=== PATIENT | female | born 1965 | race Caucasian/White ===

== ENCOUNTER 2018-01-11 10:53 | Emergency (ER) | payer SELFPAY ==
[2018-01-11] MEDS ORDERED: NITROGLYCERIN 0.4 MG/TAB SL ONE (13:23)
[2018-01-11] MEDS ORDERED: cloNIDine HCl 0.1 MG TAB ONE (14:28)
[2018-01-11] MEDS ORDERED: ENALAPRILAT 1.25 MG/ML VIAL IV ONE (15:34)
--- NOTE | 2018-01-11 16:17 | EDPHYS ---
Physician Documentation [facility] Name: Jigna Couch Age: 52 yrs Sex: Female : 1965 Arrival Date: 01/11/2018 Time: 10:56 Bed 6 Private MD: None, None ED Physician Az Ren HPI: 01/11 14:17 This 52 yrs old Female presents to ER via Ambulatory with complaints of High jr8 Blood Pressure. 14:17 The patient has elevated blood pressure and discovered this at a physician's office, [facility] and sent to the emergency department for evaluation. Associated signs and symptoms: The patient has no apparent associated signs or symptoms. Severity of symptoms: At its worst the blood pressure was moderate, in the emergency department the blood pressure is unchanged. It is unknown whether or not the patient has had similar symptoms in the past. The patient has been recently seen by a physician:. Patient has been having shortness of breath for the past couple of days. Diagnosed with bronchitis but at that time was evaluated at the ED for elevated BP as well. Had work up completed and sent home to f/u with PCP. Today at PCP blood pressure was markedly elevated and was sent to ED for further evaluation. Denies CP or shortness of breath today . 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 - Social history:: Smoking status: Patient uses tobacco products, smokes one-half pack cigarettes per day, smokes one pack cigarettes per day. ROS: 14:17 Eyes: Negative for injury, pain, redness, and discharge, ENT: Negative for injury, jr8 pain, and discharge, Neck: Negative for injury, pain, and swelling, Cardiovascular: Negative for chest pain, palpitations, and edema, Respiratory: Negative for shortness of breath, cough, wheezing, and pleuritic chest pain, Abdomen/GI: Negative for abdominal pain, nausea, vomiting, diarrhea, and constipation, Back: Negative for injury and pain, MS/Extremity: Negative for injury and deformity, Skin: Negative for injury, rash, and discoloration, Neuro: Negative for headache, weakness, numbness, tingling, and seizure. Exam: 14:17 Head/Face: Normocephalic, atraumatic. Eyes: Pupils equal round and reactive to light, jr8 extra-ocular motions intact. Lids and lashes normal. Conjunctiva and sclera are non-icteric and not injected. Cornea within normal limits. Periorbital areas with no swelling, redness, or edema. ENT: Nares patent. No nasal discharge, no septal abnormalities noted. Tympanic membranes are normal and external auditory canals are clear. Oropharynx with no redness, swelling, or masses, exudates, or evidence of obstruction, uvula midline. Mucous membranes moist. Neck: Trachea midline, no thyromegaly or masses palpated, and no cervical lymphadenopathy. Supple, full range of motion without nuchal rigidity, or vertebral point tenderness. No Meningismus. Cardiovascular: Regular rate and rhythm with a normal S1 and S2. No gallops, murmurs, or rubs. Normal PMI, no JVD. No pulse deficits. Respiratory: Lungs have equal breath sounds bilaterally, clear to auscultation and percussion. No rales, rhonchi or wheezes noted. No increased work of breathing, no retractions or nasal flaring. Abdomen/GI: Soft, non-tender, with normal bowel sounds. No distension or tympany. No guarding or rebound. No evidence of tenderness throughout. Back: No spinal tenderness. No costovertebral tenderness. Full range of motion. Skin: Warm, dry with normal turgor. Normal color with no rashes, no lesions, and no evidence of cellulitis. MS/ Extremity: Pulses equal, no cyanosis. Neurovascular intact. Full, normal range of motion. Neuro: Awake and alert, GCS 15, oriented to person, place, time, and situation. Cranial nerves II-XII grossly intact. Motor strength 5/5 in all extremities. Sensory grossly intact. Cerebellar exam normal. Normal gait. Vital Signs: 11:03 BP 198 / 120; Pulse 118; Resp 22; Temp 98.0; Pulse Ox 96% on R/A; Weight 97.07 kg; aj Height 5 ft. 8 in. (172.72 cm); Pain 0/10; 12:41 BP 193 / 104 Sitting; Pulse 102; Resp 18; Pulse Ox 98% on R/A; aj 14:14 BP 173 / 96; Pulse 98; Resp 22 S; Pulse Ox 92% on R/A; ae1 15:15 BP 180 / 99; Pulse 94; Resp 19; Pulse Ox 98% on R/A; ae1 15:45 BP 181 / 85; Pulse 85; Resp 18; Pulse Ox 95% on R/A; ae1 16:03 BP 175 / 97; Pulse 85; Resp 18; Pulse Ox 95% on R/A; ae1 11:03 Body Mass Index 32.54 (97.07 kg, 172.72 cm) aj MDM: 13:00 Patient medically screened. ri 14:17 Data reviewed: vital signs, nurses notes, diagnostic data from outside facility, jr8 cardiac enzymes, troponin i, CBC, white blood cell count, hemoglobin, hematocrit, platelets, EKG, electrolytes, sodium, potassium, chloride, serum bicarbonate, BUN, creatinine, serum glucose, radiologic studies, plain films, urinalysis. Data interpreted: Pulse oximetry: on room air is 94 %. Interpretation: normal. Counseling: I had a detailed discussion with the patient and/or guardian regarding: the historical points, exam findings, and any diagnostic results supporting the discharge/admit diagnosis, the presence of at least one elevated blood pressure reading (>120/80) during this emergency department visit, the need for outpatient follow up, a family practitioner, to return to the emergency department if symptoms worsen or persist or if there are any questions or concerns that arise at home. 15:52 ED course: Patient had full workup at [place] yesterday. No acute findings on imaging, jr8 ekg, or labs. Patient stated that ever since she put on weight blood pressure has gone up substantially. Will put her on meds until she can see PCP again. Continues to be asymptomatic . 01/11 13:17 Order name: EKG; Complete Time: 13:18 ri Administered Medications: 13:25 CANCELLED (wrong patient): Nitroglycerin 0.4 mg Sublingual once kr2 14:28 Drug: cloNIDine 0.1 mg Route: PO; ae1 15:40 Follow up: Response: Blood pressure is unchanged ae1 15:36 Drug: Enalaprilat 1.25 mg Route: IV; Rate: calculated rate; Site: right forearm; ae1 17:01 Follow up: Response: Blood pressure is lowered; IV Status: Completed infusion ae1 Disposition: 01/11/18 16:16 Discharged to Home. Impression: Essential (primary) hypertension. - Condition is Stable. - Discharge Instructions: Hypertension. - Medication Reconciliation Form, Thank You Letter, Antibiotic Education, Prescription Opioid Use form. - Follow up: Private Physician; When: 1 - 2 days; Reason: Recheck today's complaints, Continuance of care, Re-evaluation by your physician. - Problem is new. - Symptoms have improved. - Notes: Written prescription for Diovan HCT Addendum: 01/13/2018 06:36 Co-signature as Attending Physician, Az Ren MD I agree with the assessment and w a plan of care. Signatures: Dispatcher [employer] EDMaria Del Carmen Dumont RN RN aj Roszak, Josh, PA PA jr8 Casper Mcbride RN RN ae1 Az Ren MD MD wa Reaves, Karey RN kr2 Corrections: (The following items were deleted from the chart) 01/11 13:25 13:17 Nitroglycerin 0.4 mg Sublingual once ordered. [facility] 13:26 13:17 Cardiac monitoring ordered. [facility] 13: 13:17 EKG - Nurse/Tech ordered. [facility] 13:27 13:17 IV Saline Lock ordered. [facility] 13: 13:17 Labs collected and sent ordered. [facility] 13: 13:17 Oxygen Per Protocol ordered. [facility] 13:28 13:17 O2 Sat Monitoring ordered. [facility] 13:28 13:17 Urine Dipstick-Ancillary ordered. [facility] 13:29 13:18 BASIC METABOLIC PANEL+C.LAB.BRZ ordered. EDAL EDMS 13:29 13:18 BNP+C.LAB.BRZ ordered. EDMS EDMS 13:29 13:18 CBC+H.LAB.BRZ ordered. EDMS EDMS 13:29 13:18 HEPATIC FUNCTION+C.LAB.BRZ ordered. EDMS EDMS 13:29 13:18 MAGNESIUM+C.LAB.BRZ ordered. EDMS EDMS 13:29 13:18 PROTIME (+INR)+COAG.LAB.BRZ ordered. EDMS EDMS 13:29 13:18 TROPONIN (EMERG DEPT USE ONLY)+C.LAB.BRZ ordered. EDAL EDMS 14:06 13:18 Chest Single View+RAD.RAD.BRZ ordered. [facility] EDMS 17:00 16:16 01/11/2018 16:16 Discharged to Home. Impression: Essential (primary) ae1 hypertension. Condition is Stable. Discharge Instructions: Hypertension. Forms are Medication Reconciliation Form, Thank You Letter, Antibiotic Education, Prescription Opioid Use. Follow up: Private Physician; When: 1 - 2 days; Reason: Recheck today's complaints, Continuance of care, Re-evaluation by your physician. Problem is new. Symptoms have improved. jr8
--- NOTE | 2018-01-11 16:17 | ER ---
Nurse's Notes [facility] Name: Jigna Couch Age: 52 yrs Sex: Female : 1965 Arrival Date: 01/11/2018 Time: 10:56 Bed 6 Private MD: None, None Diagnosis: Essential (primary) hypertension Presentation: 01/11 11:01 Presenting complaint: Patient states: Patient sent by [facility] for high blood pressure. Patient referred to [facility] for HTN at [place] 2 days ago. Denies headache or dizziness. Patient reports increased stress recently. Transition of care: patient was not received from another setting of care. Onset of symptoms was January 11, 2018. Initial Sepsis Screen: Does the patient meet any 2 criteria? No. Patient's initial sepsis screen is negative. Does the patient have a suspected source of infection? No. Patient's initial sepsis screen is negative. Care prior to arrival: None. 11:01 Method Of Arrival: Ambulatory 11:01 Acuity: VON 3 Triage Assessment: 11:03 General: Appears in no apparent distress. comfortable, Behavior is calm, cooperative, aj appropriate for age. Pain: Denies pain. Neuro: Level of Consciousness is awake, alert, obeys commands, Oriented to person, place, time, situation, Appropriate for age. Respiratory: Airway is patent Respiratory effort is even, unlabored, Respiratory pattern is regular, symmetrical. Derm: Skin is intact, is healthy with good turgor, Skin is pink, warm \T\ dry. normal. GYN: 11:03 LMP N/A - Post-menopause aj Historical: - Allergies: 11:03 No Known Allergies; aj - Home Meds: 11:03 Prednisone Oral [Active]; Albuterol Inhl [Active]; aj - PMHx: 11:03 None; aj - PSHx: 11:03 ; Knee surgery; Appendectomy; Tonsillectomy; aj - Immunization history:: Adult Immunizations up to date. - Social history:: Smoking status: Patient uses tobacco products, smokes one-half pack cigarettes per day, smokes one pack cigarettes per day. Screenin:16 Abuse screen: Denies threats or abuse. Nutritional screening: No deficits noted. ae1 Tuberculosis screening: No symptoms or risk factors identified. Fall Risk None identified. Assessment: 14:15 General: Appears in no apparent distress. comfortable, obese, Behavior is cooperative, ae1 agitated, anxious. Pain: Denies pain. Neuro: Level of Consciousness is awake, alert, obeys commands, Oriented to person, place, time, situation. Cardiovascular: Heart tones S1 S2 present Patient's skin is warm and dry. Rhythm is regular. Respiratory: Airway is patent Respiratory effort is even, unlabored, shallow, Respiratory pattern is regular, Breath sounds are clear bilaterally. GI: No signs and/or symptoms were reported involving the gastrointestinal system. Abdomen is round obese, Bowel sounds present X 4 quads. : No signs and/or symptoms were reported regarding the genitourinary system. EENT: No signs and/or symptoms were reported regarding the EENT system. Derm: Skin is flushed. Musculoskeletal: No signs and/or symptoms reported regarding the musculoskeletal system. 15:16 Reassessment: Patient appears in no apparent distress at this time. Patient and/or ae1 family updated on plan of care and expected duration. Pain level reassessed. Patient denies pain at this time. 16:05 Reassessment: Patient appears in no apparent distress at this time. Patient and/or ae1 family updated on plan of care and expected duration. Pain level reassessed. Patient denies pain at this time. Vital Signs: 11:03 BP 198 / 120; Pulse 118; Resp 22; Temp 98.0; Pulse Ox 96% on R/A; Weight 97.07 kg; aj Height 5 ft. 8 in. (172.72 cm); Pain 0/10; 12:41 BP 193 / 104 Sitting; Pulse 102; Resp 18; Pulse Ox 98% on R/A; aj 14:14 BP 173 / 96; Pulse 98; Resp 22 S; Pulse Ox 92% on R/A; ae1 15:15 BP 180 / 99; Pulse 94; Resp 19; Pulse Ox 98% on R/A; ae1 15:45 BP 181 / 85; Pulse 85; Resp 18; Pulse Ox 95% on R/A; ae1 16:03 BP 175 / 97; Pulse 85; Resp 18; Pulse Ox 95% on R/A; ae1 11:03 Body Mass Index 32.54 (97.07 kg, 172.72 cm) ED Course: 10:56 Patient arrived in ED. mr 10:57 None, None is Private Physician. mr 11:02 Triage completed. aj 11:03 Arm band placed on right wrist. Patient placed in waiting room, Patient notified of wait time. 12:54 Lorie Mckenzie, RN is Primary Nurse. kr2 13:00 Az Ren MD is Attending Physician. wa 13:49 EKG done, by manufacturing plant technician. reviewed by Az Ren MD. at1 13:51 Casper Mcbride RN is Primary Nurse. ae1 13:51 Tremayne Palumbo PA is PHCP. jr8 13:51 Az Ren MD is Attending Physician. jr8 13:51 Inserted saline lock: 20 gauge in right forearm, using aseptic technique. wrist, using ae1 aseptic technique. Blood collected. 14:16 Placed in gown. Bed in low position. Call light in reach. Side rails up X 1. Adult w/ ae1 patient. Pulse ox on. NIBP on. 17:00 No provider procedures requiring assistance completed. IV discontinued, intact, ae1 bleeding controlled, No redness/swelling at site. Pressure dressing applied. Administered Medications: 13:25 CANCELLED (wrong patient): Nitroglycerin 0.4 mg Sublingual once kr2 14:28 Drug: cloNIDine 0.1 mg Route: PO; ae1 15:40 Follow up: Response: Blood pressure is unchanged ae1 15:36 Drug: Enalaprilat 1.25 mg Route: IV; Rate: calculated rate; Site: right forearm; ae1 17:01 Follow up: Response: Blood pressure is lowered; IV Status: Completed infusion ae1 Outcome: 16:16 Discharge ordered by . jr8 17:00 Discharged to home ambulatory, with significant other. ae1 17:00 Condition: stable 17:00 Discharge instructions given to patient, Instructed on discharge instructions, follow up and referral plans. medication usage, Demonstrated understanding of instructions, Prescriptions given X 1. 17:00 Patient left the ED. ae1 Signatures: Maria Del Carmen Caro RN RN aj Rivera, Maria mr Tremayne Palumbo PA PA jr8 Maria Del Carmen luther, environmental services supervisor EKG Tat1 Casper Mcbride, ONELIA RN ae1 Az Ren MD MD wa Reaves, Karey, RN RN kr2 Corrections: (The following items were deleted from the chart) 15:24 15:15 BP 180 / 99; Pulse 94bpm; Resp 19bpm; Pulse Ox 94% RA; ae1 ae1
--- NOTE | 2018-01-11 17:59 | EKG ---
Test Date: 2018-01-11 Test Time: 13:36:45 Epic Prelude Analyst: GILA MEASUREMENT RESULTS: Intervals: Rate: 92 ID: [id number] QRSD: 86 QT: 358 QTc: 442 [place]: P: 55 ID: [id number] QRS: 53 T: 48 INTERPRETIVE STATEMENTS: Normal sinus rhythm Possible Left atrial enlargement Borderline ECG No previous ECG available for comparison Electronically Signed On 01-11-18 17:58:02 CDT by Mateo Garza
== END 2018-01-11 17:00 | disposition home or self-care (01) ==
LOC: ER 10:53
DX: I10 Essential (primary) hypertension (principal); F17.210 Nicotine dependence, cigarettes, uncomplicated
CPT/HCPCS: 93005; 96365; 99284

== ENCOUNTER 2018-10-23 20:31 | Observation (INO) | payer BC, SELFPAY ==
[2018-10-23] MEDS ORDERED: ASPIRIN 81 MG CHEWABLE TABLET ONE (22:57)
[2018-10-23] MEDS ORDERED: NITROGLYCERIN 0.4 MG/TAB SL ONE (22:58)
[2018-10-23 23:27] LABS: Absolute Lymphocytes (CBC) 3.4 K/uL (0.7-4.9); Absolute Monocytes 0.6 K/uL (0.1-1.3); Absolute Neutrophil 6.4 K/uL (1.8-8.0); Basophils % 0.7 % (0-1.3); Eosinophils % 1.4 % (0-4.4); Lymphocytes % 32.4 % (15.3-44.8); MPV 8.1 fL (7.6-11.3); Monocytes % 5.5 % (3.3-12.3); Protime INR 0.97
[2018-10-23 23:49] LABS: Urine Blood NEGATIVE (NEG); Urine Glucose NEGATIVE (NEG)
[2018-10-23 23:50] LABS: Urine Protein NEGATIVE (NEG)
[2018-10-23 23:56] LABS: ALT/SGPT 27 U/L (12-78); AST/SGOT 25 U/L (15-37); Albumin 3.5 g/dL (3.4-5.0); Alkaline Phosphatase 140 U/L (45-117); BUN Blood Urea Nitrogen 10 mg/dL (7-18); Bicarbonate 25 mmol/L (21-32); Bilirubin Direct < 0.1 mg/dL (0-0.2); Bilirubin Total 0.2 mg/dL (0.2-1.0); Glucose Level 93 mg/dL (74-106); Magnesium 2.1 mg/dL (1.8-2.4); NT PRO-BNP 19 pg/mL (<125); Potassium 3.4 mmol/L (3.5-5.1); Protein, Total 7.7 g/dL (6.4-8.2); Sodium Level 137 mmol/L (136-145); Troponin (Emerg Dept Use Only) < 0.02 ng/mL (0.0-0.045)
--- NOTE | 2018-10-24 00:26 | ER ---
Nurse's Notes [facility] Name: Jigna Couch Age: 53 yrs Sex: Female : 1965 Arrival Date: 10/23/2018 Time: 20:32 Bed 15 Private MD: None, None Diagnosis: Chest pain, unspecified Presentation: 10/23 20:44 Presenting complaint: Patient states: left rib pain since 729. pt denies N/V, denies ak1 SOB. Transition of care: patient was not received from another setting of care. Onset of symptoms was October 23, 2018. Risk Assessment: Do you want to hurt yourself or someone else? Patient reports no desire to harm self or others. Initial Sepsis Screen: Does the patient meet any 2 criteria? No. Patient's initial sepsis screen is negative. Does the patient have a suspected source of infection? No. Patient's initial sepsis screen is negative. Care prior to arrival: None. 20:44 Method Of Arrival: Ambulatory ak1 20:44 Acuity: VON 3 ak1 Triage Assessment: 20:46 General: Appears in no apparent distress. Behavior is calm, cooperative. 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 - Social history:: Smoking status: Patient uses tobacco products, smokes one pack cigarettes per day. - Ebola Screening: : No symptoms or risks identified at this time. Screenin:51 Abuse screen: Denies threats or abuse. Denies injuries from another. Nutritional cc3 screening: No deficits noted. Tuberculosis screening: No symptoms or risk factors identified. Fall Risk Ambulatory Aid- None/Bed Rest/Nurse Assist (0 pts). Gait- Normal/Bed Rest/Wheelchair (0 pts) Mental Status- Oriented to own ability (0 pts). Assessment: 21:51 Pain: Pain does not radiate. Pain began suddenly. Cardiovascular: Reports chest pain, cc3 Patient's skin is warm and dry. 22:18 Reassessment: Patient appears in no apparent distress at this time. Patient and/or cc3 family updated on plan of care and expected duration. Pain level reassessed. Patient is alert, oriented x 3, equal unlabored respirations, skin warm/dry/pink. 23:25 Reassessment: Patient appears in no apparent distress at this time. Patient and/or cc3 family updated on plan of care and expected duration. Pain level reassessed. Patient is alert, oriented x 3, equal unlabored respirations, skin warm/dry/pink. 10/24 00:25 Reassessment: Patient appears in no apparent distress at this time. Patient and/or cc3 family updated on plan of care and expected duration. Pain level reassessed. Patient is alert, oriented x 3, equal unlabored respirations, skin warm/dry/pink. Patient for admission, awaiting admission orders. 01:30 Reassessment: Patient appears in no apparent distress at this time. Patient and/or cc3 family updated on plan of care and expected duration. Pain level reassessed. Patient is alert, oriented x 3, equal unlabored respirations, skin warm/dry/pink. Room available at 219, report called and handed over to ONELIA Nation for continuity of care and management. 01:50 Reassessment: Patient left ER for admission vitally stable by wheelchair escorted by ED cc3 arik Thornton with the patient's . Vital Signs: 10/23 20:46 BP 141 / 81; Pulse 84; Resp 20; Temp 98.1; Pulse Ox 95% on R/A; Weight 102.06 kg (R); ak1 Height 5 ft. 8 in. (172.72 cm) (R); Pain 6/10; 21:54 BP 131 / 81; Pulse 77; Resp 20 S; Pulse Ox 95% on R/A; cc3 22:45 BP 123 / 71; Pulse 79; Resp 20 S; Pulse Ox 95% on R/A; cc3 23:57 BP 133 / 74; Pulse 75; Resp 19 S; Pulse Ox 95% on R/A; cc3 10/24 00:45 BP 135 / 77; Pulse 78; Resp 19 S; Pulse Ox 94% on 2 lpm NC; cc3 01:20 BP 157 / 90; Pulse 70; Resp 19; Pulse Ox 94% on 2 lpm NC; cc3 10/23 20:46 Body Mass Index 34.21 (102.06 kg, 172.72 cm) ak1 ED Course: 10/23 20:32 Patient arrived in ED. dl4 20:32 None, None is Private Physician. dl4 20:45 Triage completed. ak1 20:46 Arm band placed on Patient placed in waiting room, Patient notified of wait time. ak1 21:34 Chest Pa And Lat (2 Views) XRAY In Process Unspecified. EDMS 21:51 Lianne Sher is Primary Nurse. cc3 21:51 Patient has correct armband on for positive identification. Bed in low position. Call cc3 light in reach. Side rails up X 1. phototypesetting equipment monitor on. Pulse ox on. NIBP on. 21:51 Patient maintains SpO2 saturation greater than 95% on room air. cc3 22:22 Mauro Leal PA is PHCP. cp 22:23 Mauro Castillo MD is Attending Physician. cp 23:00 Inserted saline lock: 22 gauge in right forearm, using aseptic technique. Blood cc3 collected. 10/24 00:24 Maricel Worrell MD is Hospitalizing Provider. cp 01:30 No provider procedures requiring assistance completed. Patient admitted, IV remains in cc3 place. Administered Medications: 10/23 22:45 Drug: Aspirin Chewable Tablet 324 mg Route: PO; cc3 23:00 Follow up: Response: No adverse reaction cc3 22:46 Drug: Nitroglycerin 0.4 mg Route: Sublingual; cc3 23:00 Follow up: Response: No adverse reaction cc3 Outcome: 10/24 00:25 Decision to Hospitalize by Provider. cp 01:30 Admitted to Med/surg accompanied by tech, family with patient, via wheelchair, room cc3 219, with chart, Report called to ONELIA Nation 01:30 Condition: stable 01:30 Instructed on the need for admit, Demonstrated understanding of instructions. 01:55 Patient left the ED. cc3 Signatures: Dispatcher [employer] EDMS Michelle Woodard, RN RN ak1 Mauro Leal PA PA cp Lianne Sher cc3 Vernon Cruz dl4
--- NOTE | 2018-10-24 00:27 | EDPHYS ---
Physician Documentation [facility] Name: Jigna Couch Age: 53 yrs Sex: Female : 1965 Arrival Date: 10/23/2018 Time: 20:32 Bed 15 Private MD: None, None ED Physician Mauro Castillo HPI: 10/23 22:35 This 53 yrs old Female presents to ER via Ambulatory with complaints of Chest cp Pain, High Blood Pressure. 22:35 The patient or guardian reports chest pain that is located primarily in the anterior cp chest wall, left. 22:35 Onset: this morning. The pain radiates to the left shoulder, left neck. Associated cp signs and symptoms: Pertinent negatives: abdominal pain, cough, diaphoresis, dizziness, headache, lower extremity pain, lower extremity swelling, lightheadedness, recent travel, shortness of breath, syncope. The chest pain is described as sharp. Duration: The patient or guardian reports a single episode, that is still ongoing. 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 - Social history:: Smoking status: Patient uses tobacco products, smokes one pack cigarettes per day. - Ebola Screening: : No symptoms or risks identified at this time. ROS: 22:40 Constitutional: Negative for body aches, chills, fever, poor PO intake. cp 22:40 Eyes: Negative for injury, pain, redness, and discharge. cp 22:40 ENT: Negative for drainage from ear(s), ear pain, sore throat, difficulty swallowing, difficulty handling secretions. 22:40 Cardiovascular: Positive for chest pain, Negative for edema, palpitations. 22:40 Respiratory: Negative for cough, shortness of breath, wheezing. 22:40 Abdomen/GI: Negative for abdominal pain, nausea, vomiting, and diarrhea, black/tarry stool, rectal bleeding. 22:40 Back: Negative for pain at rest, pain with movement, radiated pain. 22:40 : Negative for urinary symptoms. 22:40 Skin: Negative for cellulitis, rash. 22:40 Neuro: Negative for altered mental status, dizziness, headache, syncope, near syncope, weakness. 22:40 All other systems are negative. Exam: 22:15 ECG was reviewed by the Attending Physician. cp 22:45 Constitutional: The patient appears in no acute distress, alert, awake, cp non-diaphoretic, non-toxic, well developed, well nourished. 22:45 Head/Face: Normocephalic, atraumatic. Eyes: Pupils equal round and reactive to light, cp extra-ocular motions intact. Lids and lashes normal. Conjunctiva and sclera are non-icteric and not injected. Cornea within normal limits. Periorbital areas with no swelling, redness, or edema. ENT: Nares patent. No nasal discharge, no septal abnormalities noted. Tympanic membranes are normal and external auditory canals are clear. Oropharynx with no redness, swelling, or masses, exudates, or evidence of obstruction, uvula midline. Mucous membranes moist. Neck: Trachea midline, no thyromegaly or masses palpated, and no cervical lymphadenopathy. Supple, full range of motion without nuchal rigidity, or vertebral point tenderness. No Meningismus. Chest/axilla: Normal chest wall appearance and motion. Nontender with no deformity. No lesions are appreciated. 22:45 Cardiovascular: Rate: normal, Rhythm: regular, Heart sounds: murmur, not appreciated, rub, not appreciated, gallop, not appreciated, Edema: is not appreciated, JVD: is not appreciated. 22:45 Respiratory: the patient does not display signs of respiratory distress, Respirations: normal, no use of accessory muscles, no retractions, no splinting, no tachypnea, labored breathing, is not present, Breath sounds: bronchial sounds, are not appreciated, decreased breath sounds, are not appreciated, stridor, is not appreciated, wheezing: is not appreciated. 22:45 Abdomen/GI: Inspection: abdomen appears normal, Bowel sounds: active, all quadrants, Palpation: abdomen is soft and non-tender, in all quadrants, rebound tenderness, is not appreciated, voluntary guarding, is not appreciated, involuntary guarding, is not appreciated. 22:45 Back: pain, is absent, ROM is normal. 22:45 Musculoskeletal/extremity: Exam is negative for calf tenderness, decreased range of motion, edema, injury. 22:45 Skin: cellulitis, is not appreciated, no rash present. 22:45 Neuro: Orientation: to person, place \T\ time. Mentation: is normal, Cerebellar function: is grossly normal, Motor: is normal, Sensation: is normal. Vital Signs: 20:46 BP 141 / 81; Pulse 84; Resp 20; Temp 98.1; Pulse Ox 95% on R/A; Weight 102.06 kg (R); ak1 Height 5 ft. 8 in. (172.72 cm) (R); Pain 6/10; 21:54 BP 131 / 81; Pulse 77; Resp 20 S; Pulse Ox 95% on R/A; cc3 22:45 BP 123 / 71; Pulse 79; Resp 20 S; Pulse Ox 95% on R/A; cc3 23:57 BP 133 / 74; Pulse 75; Resp 19 S; Pulse Ox 95% on R/A; cc3 10/24 00:45 BP 135 / 77; Pulse 78; Resp 19 S; Pulse Ox 94% on 2 lpm NC; cc3 01:20 BP 157 / 90; Pulse 70; Resp 19; Pulse Ox 94% on 2 lpm NC; cc3 10/23 20:46 Body Mass Index 34.21 (102.06 kg, 172.72 cm) ak1 MDM: 10/23 22:25 Patient medically screened. cp 23:00 Differential diagnosis: abnormal EKG, acute myocardial infarction, acute pericarditis, cp costochondritis, esophagitis, gastritis, pancreatitis, pleurisy, pneumonia, pneumothorax, pulmonary embolus, stable angina, unstable angina. 10/24 00:00 The patient was given aspirin in the Emergency Department. cp 00:25 Data reviewed: vital signs, nurses notes, lab test result(s), EKG, radiologic studies, cp plain films. 00:25 Test interpretation: by ED physician or midlevel provider: ECG, plain radiologic cp studies. Response to treatment: the patient's symptoms have markedly improved after treatment, and as a result, I will admit patient. 10/23 22:35 Order name: Basic Metabolic Panel; Complete Time: 23:56 cp 10/23 23:57 Interpretation: Normal except: K 3.4. cp 10/23 22:35 Order name: CBC with Diff; Complete Time: 23:56 cp 10/23 22:35 Order name: LFT's; Complete Time: 23:56 cp 10/23 23:57 Interpretation: Normal except: ALK 140; GLOB 4.2; A/G 0.8. cp 02 22:35 Order name: Magnesium; Complete Time: 23:56 cp 10/23 22:35 Order name: NT PRO-BNP; Complete Time: 23:56 cp 10/23 22:35 Order name: PT-INR; Complete Time: 23:56 cp 10/23 20:59 Order name: Chest Pa And Lat (2 Views) XRAY ak1 02 22:35 Order name: Troponin (emerg Dept Use Only); Complete Time: 23:56 cp 10/23 23:37 Order name: Urine Dipstick--Ancillary (enter results); Complete Time: 23:56 fc 10/24 00:56 Order name: Echo with Doppler [facility] 10/24 00:56 Order name: Lipid Profile [facility] 10/24 00:56 Order name: Troponin I [facility] 10/23 22:35 Order name: EKG; Complete Time: 22:36 cp 10/23 22:35 Order name: Cardiac monitoring; Complete Time: 22:43 cp 10/23 22:35 Order name: EKG - Nurse/Tech; Complete Time: 22:43 cp 10/23 22:35 Order name: IV Saline Lock; Complete Time: 23:13 cp 10/23 22:35 Order name: Labs collected and sent; Complete Time: 23:13 cp 10/23 22:35 Order name: O2 Per Protocol; Complete Time: 22:43 cp 10/23 22:35 Order name: O2 Sat Monitoring; Complete Time: 22:43 cp 10/23 22:35 Order name: Urine Dipstick-Ancillary (obtain specimen); Complete Time: 23:37 cp 10/23 22:35 Order name: Urine Test (obtain specimen); Complete Time: 23:55 cp 10/24 00:56 Order name: CONS Physician Consult [facility] 10/24 00:56 Order name: Heart Healthy [facility] 10/24 00:56 Order name: EKG Electrocardiogram [facility] 10/24 00:56 Order name: EKG Electrocardiogram [facility] EC/11 22:15 Rate is 73 beats/min. Rhythm is regular. DE interval is normal. QRS interval is normal. cp QT interval is normal. Interpreted by me. Reviewed by me. Administered Medications: 22:45 Drug: Aspirin Chewable Tablet 324 mg Route: PO; cc3 23:00 Follow up: Response: No adverse reaction cc3 22:46 Drug: Nitroglycerin 0.4 mg Route: Sublingual; cc3 23:00 Follow up: Response: No adverse reaction cc3 Disposition: 10/24 07:01 Co-signature as Attending Physician, Mauro Castillo MD I agree with the assessment and vince plan of care. Disposition: 10/24/18 00:25 Hospitalization ordered by Maricel oWrrell for Observation. Preliminary diagnosis is Chest pain, unspecified. - Bed requested for Telemetry/MedSurg (observation). - Status is Observation. cc3 - Condition is Stable. - Problem is new. - Symptoms have improved. UTI on Admission? No Signatures: Dispatcher [employer] EDMS Lucie Velasquez RN RN kl Anderson, Corey, MD MD cha Krenek, Amber, RN RN ak1 Mauro Leal PA PA cp Cordel, Charlene cc3 Corrections: (The following items were deleted from the chart) 01:13 00:25 Hospitalization Ordered by Maricel Worrell MD for Observation. Preliminary kl diagnosis is Chest pain, unspecified. Bed requested for Telemetry/MedSurg (observation). Status is Observation. Condition is Stable. Problem is new. Symptoms have improved. UTI on Admission? No. cp 01:55 01:13 10/24/2018 00:25 Hospitalization Ordered by Maricel Worrell MD for Observation. cc3 Preliminary diagnosis is Chest pain, unspecified. Bed requested for Telemetry/MedSurg (observation). Status is Observation. Condition is Stable. Problem is new. Symptoms have improved. UTI on Admission? No. kl
[2018-10-24] MEDS ORDERED: ACETAMINOPHEN 500 MG TAB PO PRN (00:52)
[2018-10-24] MEDS ORDERED: MORPHINE 4 MG/ML SYR IV PRN (00:52)
[2018-10-24] MEDS ORDERED: ALPRAZOLAM 0.25 MG TABLET PO PRN (00:52)
[2018-10-24 06:30] LABS: BUN Blood Urea Nitrogen 10 mg/dL (7-18); Bicarbonate 30 mmol/L (21-32); Glucose Level 120 mg/dL (74-106); Potassium 3.7 mmol/L (3.5-5.1); Sodium Level 138 mmol/L (136-145)
[2018-10-24 06:36] LABS: HDL Cholesterol 42 mg/dL (40-60); LDL Cholesterol, Calculated 122 (<130); Troponin I < 0.02 ng/mL (0.0-0.045)
--- NOTE | 2018-10-24 07:18 | EKG ---
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
--- NOTE | 2018-10-24 08:20 | RAD REPORT ---
EXAM DESCRIPTION: RAD - Chest Pa And Lat (2 Views) - 10/23/2018 9:33 pm CLINICAL HISTORY: Cough;Chest pain Chest pain. COMPARISON: No comparisons FINDINGS: The lungs are clear. The heart is mildly enlarged in size. No displaced fractures.
[2018-10-24] MEDS ORDERED: METOPROLOL TAR 50 MG TAB PO SCH (09:00)
[2018-10-24] MEDS ORDERED: ENOXAPARIN 40 MG/0.4 ML SQ SCH (09:00)
[2018-10-24] MEDS ORDERED: ASPIRIN EC 81 MG TAB PO SCH (09:00)
--- NOTE | 2018-10-24 09:33 | P.HP ---
Certification for Inpatient Patient admitted to: Observation With expected LOS: <2 Midnights Patient will require the following post-hospital care: None Practitioner: I am a practitioner with admitting privileges, knowledge of patient current condition, hospital course, and medical plan of care. Services: Services provided to patient in accordance with Admission requirements found in Title 42 Section 412.3 of the Code of Federal Regulations Patient History Date of Service: 10/24/18 Reason for admission: chest pain rule out acute coronary syndrome History of Present Illness: Patient is a 53-year-old female with history of hypertension, diabetes, morbid obesity, tobacco use, and family history who presented to the hospital with chest pain. She has not been taking her blood pressure medication because they are too expensive. The chest pain was mainly in the sternal region and radiated to the left arm. She has some numbness and tingling in the left hand. She came into the hospital for further evaluation. She had her brother, father, mother with heart disease. She had a cousin who had sudden cardiac arrest. This was in his 50s. She is concerned because she has not been taking her blood pressure medication. Her troponins are negative. EKG with no acute abnormalities. Will rule her out, and will proceed with a stress test this morning. Allergies No Known Allergies Allergy (Verified 10/24/18 02:16) Home Medications: NK [No Home Meds] 10/24/18 - Past Medical/Surgical History Has patient received pneumonia vaccine in the past: No Diabetic: No -: hypertension -: csection -: knee replacement right -: appendectomy -: tomsillectomy - Family History Mother Medical History: Heart disease Father Medical History: Heart disease - Social History Smoking Status: Current every day smoker Alcohol use: No CD- Drugs: No Caffeine use: Yes Place of Residence: Home Review of Systems 10-point ROS is otherwise unremarkable Physical Examination - Vital Signs Temperature: 97.9 F Blood Pressure: 142/67 Pulse: 78 Respirations: 18 Pulse Ox (%): 93 - Physical Exam General: Alert, In no apparent distress, Oriented x3 HEENT: Atraumatic, PERRLA, Mucous membr. moist/pink, EOMI, Sclerae nonicteric Neck: Supple, 2+ carotid pulse no bruit, No LAD, Without JVD or thyroid abnormality Respiratory: Clear to auscultation bilaterally, Normal air movement Cardiovascular: Regular rate/rhythm, Normal S1 S2, No murmurs Gastrointestinal: Normal bowel sounds, Soft and benign, Non-distended, No tenderness Musculoskeletal: No clubbing, No swelling, No tenderness Integumentary: No rashes Neurological: Normal gait, Normal speech, Normal strength at 5/5 x4 extr, Normal tone, Sensation intact, Cranial nerves 3-12 intact, Normal affect Lymphatics: No axilla or inguinal lymphadenopathy - Studies Laboratory Data (last 24 hrs) 10/23/18 23:00: PT 11.5, INR 0.97 10/23/18 23:00: WBC 10.6, Hgb 14.5, Hct 43.0, Plt Count 329 10/23/18 23:00: Sodium 137, Potassium 3.4 L, BUN 10, Creatinine 0.63, Glucose 93 , Magnesium 2.1, Total Bilirubin 0.2, AST 25, ALT 27, Alkaline Phosphatase 140 H Assessment & Plan - Problems (Diagnosis) (1) Chest pain, rule out acute myocardial infarction Current Visit: Yes Status: Acute (2) Hypertension Current Visit: Yes Status: Acute (3) Type 2 diabetes mellitus Current Visit: Yes Status: Acute (4) Obesity Current Visit: Yes Status: Acute (5) Tobacco abuse Current Visit: Yes Status: Acute (6) Family history of heart disease Current Visit: Yes Status: Acute (7) Family history of sudden cardiac Current Visit: Yes Status: Acute - Plan 1. Serial troponins and EKG 2. Cardiology consultation 3. Echocardiogram and inpatient stress test 4. Anti-platelet therapy, anti coagulation, beta-emiliana, statin, and O2 as needed 5. IV morphine for pain 6. Nitro p.r.n. Discharge Plan: Home Plan to discharge in: 24 Hours - Advance Directives Does patient have a Living Will: No Does patient have a Durable POA for Healthcare: No - Code Status/Comfort Care Code Status Assessed: Yes Code Status: Full Code Critical Care: No Time Spent Managing PTS Care (In Minutes): 50
[2018-10-24] MEDS ORDERED: REGADENOSON 0.4 MG/5 ML SYR IV ONE (10:21)
--- NOTE | 2018-10-24 14:12 | RAD REPORT ---
EXAM DESCRIPTION: NM - Rest Stress Cardiac Imaging - 10/24/2018 2:02 pm CLINICAL HISTORY: CP Chest pain. COMPARISON: No comparisons TECHNIQUE: The patient was administered approximately 10mCi of Tc 99m Sestamibi prior to resting SPE CT imaging of the heart. The patient was then administered approximately 30 mCi of Tc 99m Sestamibi f ollowing exercise or pharmacologic stress. Multiplanar SPECT images were reviewed. FINDINGS: No stress induced ischemic defect is seen to suggest stress induced ischemia. No fixed def ect is seen to suggest hibernating myocardium or scarred myocardium. The end diastolic volume is 134 ml, the end systolic volume is 65 ml, and the ejection fraction is 51 %. IMPRESSION: No stress induced ischemia.
--- NOTE | 2018-10-24 16:18 | CON ---
Cardiology Consult: A 53-year-old woman. Attending Physician: Dr. Diamond. Chief Complaint: Chest pain. History Of Present Illness: The chest pain she has is very atypical, fleeting, shooting pains, axill raz region, anterior chest below the left breast and up into the back of the neck, those are all yest erday. Presently, she is not having any of these symptoms. Since she has been in the hospital [facility], MS was ruled out, with serial EKGs and enzymes. The patient has no prior history of myocardial infarction or stroke. She does not take any home medicines. Does not have any history of vascular disease. She uses tobacco. No illegal or street drugs. Modest alcohol use. Physical Examination: General: She is 5 feet 8 inches, 268 pounds. HEENT: Unremarkable. Lungs: Clear. Heart: Exam within normal limits. Abdomen: Soft. Extremities: Normal. Laboratory Data: Her electrocardiogram is questionable for an anterior infarct, otherwise normal. T he chest x-ray is within normal limits. Impression: The patient should have a stress test and echocardiogram. If those are normal, she coul d be discharged. Her long-term outlook will be better if she discontinues smoking and gets regular f ollowups with the family doctor, recheck cholesterol, try to lose weight and follow a low-fat diet. Thank you very much for your kind referral of Ms. Couch. I will follow her with you. BUCKY Voice ID: [id number] Report ID: [id number]
--- NOTE | 2018-10-24 17:21 | ECHO ---
HEIGHT: 5 ft 8 in WEIGHT: 268 lb 1.6 oz DATE OF STUDY: 10/24/[address]: Maricel Worrell MD 2-DIMENSIONAL: YES M.MODE: YES DOPPLER: YES COLOR FLOW: YES TDS: PORTABLE: DEFINITY: BUBBLE STUDY: DIAGNOSIS: CHEST PAIN CARDIAC HISTORY: CATHERIZATION: NO SURGERY: NO PROSTHETIC VALVE: NO PACEMAKER: NO MEASUREMENTS (cm) DIASTOLIC (NORMALS) SYSTOLIC (NORMALS) IVSd 1.1 (0.6-1.2) LA Diam 3.8 (1.9-4.0) LVEF 72% LVIDd 5.5 (3.5-5.7) LVIDs 3.2 (2.0-3.5) %FS 42% LVPWd 1.1 (0.6-1.2) Ao Diam 2.9 (2.0-3.7) 2 DIMENSIONAL ASSESSMENT: RIGHT ATRIUM: NORMAL LEFT ATRIUM: NORMAL RIGHT VENTRICLE: NORMAL LEFT VENTRICLE: NORMAL TRICUSPID VALVE: NORMAL MITRAL VALVE: NORMAL PULMONIC VALVE: NORMAL AORTIC VALVE: NORMAL PERICARDIAL EFFUSION: NONE AORTIC ROOT: NORMAL LEFT VENTRICULAR WALL MOTION: NORMAL DOPPLER/COLOR FLOW: NORMAL COMMENTS: NORMAL TWO DIMENSIONAL ECHOCARDIOGRAM WITH DOPPLER. TECHNOLOGIST: SAUMYA PEREZ
--- NOTE | 2018-10-25 08:06 | TREADPHA ---
DX: CHEST PAIN Date of Study: 10/24/2018 Ht: 5 8 Wt: 268 lb 1.6 oz Consulting Physician: ALDEN MEDICATIONS: TYLENOL, XANAX, ASPIRIN, LOVENOX, LOPRESSOR HISTORY: 53 YEAR OLD FEMALE WITH COMPLAINTS OF CHEST PAIN. 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 PHYSICIAL EXAMINATION: RESTING B.P.: 161/103 RESTING H.R.: 76 RESTING EKG: NORMAL PROTOCOL: LEXISCAN EXERCISE TIME: 3:30 B.P. AT PEAK STRESS: 179/96 IMPRESSION: LEXISCAN INJECTED. CARDIOLITE INJECTED PER PROTOCOL. SEE NUCLEAR MEDICINE REPORT. NO SUPRAVENTRICULAR TACHYCARDIA. NO VENTRICULAR TACHYCARDIA. NO PREMATURE ATRIAL COMPLEXES. NO PREMATURE VENTRICULAR COMPLEXES. PATIENT REPORTED 0/10 CHEST PAIN PRIOR TO PROCEDURE. PATIENT REPORTED 5/10 CHEST PAIN DURING PROCEDURE. PATIENT REPORTED 0/10 CHEST PAIN IN RECOVERY. NON DIAGNOSTIC EKG WITH LEXISCAN STRESS.
== END 2018-10-24 18:00 | disposition home or self-care (01) ==
LOC: ER 20:31 → ERHOLD 10-24 00:59 → 2ND 10-24 01:34
PROVIDERS: ADMIT Family Medicine; ATTEND Hospitalist
DX: R07.9 Chest pain, unspecified (principal); I10 Essential (primary) hypertension; E11.9 Type 2 diabetes mellitus without complications; E66.01 Morbid (severe) obesity due to excess calories; Z68.41 Body mass index [BMI] 40.0-44.9, adult; F17.210 Nicotine dependence, cigarettes, uncomplicated; Z96.651 Presence of right artificial knee joint; Z82.49 Family history of ischemic heart disease and other diseases of the circulatory system; Z82.41 Family history of sudden cardiac death
CPT/HCPCS: 36415; 71046; 78452; 80048; 80061; 80076; 81003; 83735; 83880; 84484; 85025; 85610; 93005; 93017; 93306; 99285; A9500; G0378; J1650; J2785